=== PATIENT | male | born 1950 | race African-American/Black ===

== ENCOUNTER → 2019-05-29 | Emergency (ER) | payer MEDICARE, BC ==
[~2019-05-29] VITALS: Ht 185.4 cm; Wt 99.8 kg
[~2019-05-29] MED LIST: ONDANSETRON HCL 4 MG/2 ML VIAL IV ONE; SODIUM CHLORIDE 0.9% 1,000 ML IV ONE; SODIUM CHLORIDE 0.9% 2,000 ML IV ONE; cloNIDine HCL 0.1 MG TAB ONE; cloNIDine HCL 0.1 MG TAB PO ONE
[2019-05-30 04:11] LABS: Basophils # (auto) 0 10 ^3/uL (0-0.2); Basophils % (auto) 0.5 % (0.0-2.0); Eosinophils # (auto) 0.1 10 ^3/uL (0-0.8); Hematocrit 44.5 % (41.0-53.0); Hemoglobin 14.6 g/dL (13.5-17.5); Lymphocytes % (auto) 45.3 % (10.0-50.0); Mean Corpuscular Hemoglobin 30.5 pg (28.0-32.0); Mean Corpuscular Hgb Conc. 32.8 g/dL (32.0-36.0); Mean Corpuscular Volume 93.1 fL (80.0-100.0); Monocytes # (auto) 0.5 10 ^3/uL (0-1.3); Monocytes % (auto) 7.5 % (0.0-12.0); Neutrophils % (auto) 44.7 % (37.0-80.0); Nucleated Red Blood Cells % 0.2 %; Platelet Count (auto) 304 10^3/uL (140-450); Red Blood Cells 4.78 10^6/uL (4.5-5.90); Red Cell Distribution Width 14.4 % (11.8-14.3); White Blood Cell 6.6 10^3/uL (4.4-10.8)
[2019-05-30 04:24] LABS: INR 1.05 (0.9-1.15)
[2019-05-30 04:25] LABS: Albumin 4.1 g/dL (3.4-5.0); BUN/Creatinine Ratio 10.1; Calcium 9.2 mg/dL (8.5-10.1)
[2019-05-30 04:36] LABS: Bilirubin, Total 0.3 mg/dL (0.2-1.0); Total Protein 8.4 g/dL (6.4-8.2)
[2019-05-30 05:20] VITALS: BP 93/64
== END | disposition home or self-care (01) ==
LOC: EDUNIT# 23:12 → EDBD 23:22 → ER 23:24
DX: F10.129 Alcohol abuse with intoxication, unspecified (principal); R11.2 Nausea with vomiting, unspecified; R10.9 Unspecified abdominal pain; I10 Essential (primary) hypertension; Y90.8 Blood alcohol level of 240 mg/100 ml or more
CPT/HCPCS: 36415; 80053; 80320; 83690; 85025; 85610; 96360; 96361; 99283; J7030